=== PATIENT | female | born 1985 | race Caucasian/White ===

== ENCOUNTER 2023-07-30 20:31 | Emergency (ER) | payer MEDICAID, SELFPAY ==
[2023-07-30 20:33] VITALS: BP 127/87; PULSE 90; RESP 18; TEMP 36.6; O2SAT 99; BMI 31.4
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
--- NOTE | 2023-07-30 21:18 | EX.ED.DYSGE1 ---
HPI History of Present Illness Chief Complaint: Cellulitis Narrative Narrative: 37-year-old female with self-inflicted wound to the left lateral foot. She states she scratches at this constantly. She has had wounds like this on her right foot and her left foot but this is the worst she has had. She states she scratched the surface of the skin off and now she has some drainage. She states it hurts. She states she been using a combination of A&E ointment and calamine lotion. She has been try to keep her wound clean. Denies systemic signs or symptoms. No fevers or chills. No history of diabetes. [facility] Medical History Anxiety Depression Post hysterectomy menopause Home Medications estradiol 2 mg tablet (Estrace) 2 mg PO DAILY #100 tabs 07/14/16 [Rx Last Taken Unknown] clindamycin HCl 150 mg capsule 450 mg (3 x 150 mg) PO TID 10 days #90 caps 07/30/23 [Rx Last Taken Unknown] diclofenac sodium 75 mg tablet,delayed release 75 mg PO BID 07/30/23 [History Last Taken Unknown] escitalopram oxalate 20 mg tablet 20 mg PO DAILY 07/30/23 [History Last Taken Unknown] hydrocodone-acetaminophen 5-325mg 5mg-325mg 1 tab PO Q6H PRN PRN Pain 3 days #12 TABLETS 07/30/23 [Rx Last Taken Unknown] hydroxyzine HCl 50 mg tablet 50 mg PO TID 07/30/23 [History Last Taken Unknown] lamotrigine 100 mg tablet 100 mg PO DAILY 07/30/23 [History Last Taken Unknown] quetiapine 50 mg tablet 50 mg PO QHS 07/30/23 [History Last Taken Unknown] tizanidine 4 mg tablet 4 mg PO TID 07/30/23 [History Last Taken Unknown] Allergy/AdvReac Type Severity Reaction Status Date / Time No Known Allergies Allergy Verified 07/30/23 20:35 Social History Smoking Status: Current every day smoker tobacco type: cigarettes ROS ROS ED Constitutional Constitutional ED: Denies chills, fever(s) or sweats Eyes Eyes: Denies blurry vision or change in vision ENT ENT ED: Denies ear pain or sore throat Cardiovascular Cardiovascular: Denies chest pain, palpitations or racing heartbeat Respiratory/Chest Respiratory/Chest: Denies cough, dyspnea or sputum Gastrointestinal Gastrointestinal: Denies abdominal pain, constipation, diarrhea, nausea or vomiting Genitourinary Genitourinary ED: Denies dysuria, hematuria or urinary frequency Musculoskeletal Musculoskeletal: Denies arthralgias, myalgias or neck pain Integumentary Reports rash; Denies abscess or Abrasions Neurologic Neurologic: Denies headache(s), paresthesias or weakness Psychiatric Psychiatric: Denies anxiety, depression, suicidal ideation or suicidal thoughts Endocrine Endocrinology: Denies polydipsia or polyuria EXAM Physical Exam Const Vital Signs: 07/30/23 20:33 Temperature 97.9 F Temperature Source Temporal Pulse Rate 90 Respiratory Rate 18 Blood Pressure 127/87 H Blood Pressure Mean 100 Pulse Ox 99 Oxygen Delivery Method Room Air Positive well nourished HEENT Reports moist mucous membranes Eyes PERRL and EOMs intact bilaterally Resp normal respiratory effort Cardio regular rate and regular rhythm GI normal to inspection, nondistended, normoactive bowel sounds Neuro oriented x3 and CN's II-XII intact bilaterally Sensorium / Orientation: alert Psych Mood & Affect: tearful Skin Skin Narrative: There is a 3 cm ulceration on the lateral aspect of the left foot. There are some mild induration surrounding. No evidence of abscess. Neurovascular intact brisk cap refill to all 5 toes. No lymphangitic streaking. MDM MDM MDM Narrative Medical decision making narrative: Patient with ulcer on the left side of the foot which she states is self-inflicted from scratching at it. She is been using a combination of A&E ointment and calamine lotion which I did recommend she discontinue. She is not having any systemic signs or symptoms. I will start her on clindamycin with first dose given in the ED. I will have her wound cleaned and dressed. She given instructions to soak her wound and to keep it clean and dry. Return precautions were discussed. I gave her podiatry for follow-up. She is to use bacitracin on this locally when she cleans her wound. Impression: 1. Ulceration left foot 2. Cellulitis Lab Data Attestation: I reviewed the patient's lab results. Discharge Plan Triage Chief Complaint: Cellulitis ED Provider: Scooby Mullins Dx/Rx/DC Orders Instructions: Cellulitis Dc Prescriptions: New clindamycin HCl 150 mg capsule 450 mg PO TID 10 Days Qty: 90 0RF hydrocodone-acetaminophen 5-325 mg tablet 1 tab PO Q6H PRN PRN (Reason: Pain) 3 Days Qty: 12 0RF No Action estradiol [Estrace] 2 MG tablet 2 mg PO DAILY Qty: 100 4RF diclofenac sodium 75 mg tablet,delayed release (DR/EC) 75 mg PO BID tizanidine 4 mg tablet 4 mg PO TID Patient Comments: TAKE 1 TABLET BY MOUTH THREE TIMES DAILY hydroxyzine HCl 50 mg tablet 50 mg PO TID Patient Comments: TAKE 1 TABLET BY MOUTH THREE TIMES DAILY NEEDED FOR ANXIETY lamotrigine 100 mg tablet 100 mg PO DAILY Patient Comments: TAKE 1 & 1/2 (ONE & ONE-HALF) TABLETS BY MOUTH ONCE DAILY escitalopram oxalate 20 mg tablet 20 mg PO DAILY Patient Comments: TAKE 1 TABLET BY MOUTH ONCE DAILY quetiapine 50 mg tablet 50 mg PO QHS Patient Comments: TAKE 1 TABLET BY MOUTH EVERY DAY AT BEDTIME Primary Care Provider: Care Physician,No Primary Referrals: Andrew Guerra DPM [Med Staff - Active Staff] - 3-5 Days Care Physician,No Primary [Primary Care Provider] - Disposition Disposition: Home, Self Care
[2023-07-30] MEDS: Clindamycin HCl 150 MG Capsule 450 MG PO (21:23)
[2023-07-30 21:25] VITALS: RESP 16
== END 2023-07-30 21:33 | disposition home or self-care (01) ==
PROVIDERS: Emergency Provider Student in an Organized Health Care Education/Training Program; Visit Provider Student in an Organized Health Care Education/Training Program
DX: L97.529 Non-pressure chronic ulcer of other part of left foot with unspecified severity (principal); F17.210 Nicotine dependence, cigarettes, uncomplicated; L03.116 Cellulitis of left lower limb; F41.9 Anxiety disorder, unspecified; F32.A Depression, unspecified; Z78.0 Asymptomatic menopausal state; Z79.899 Other long term (current) drug therapy; Z90.710 Acquired absence of both cervix and uterus
CPT/HCPCS: 99282